=== PATIENT | male | born 1990 | race African-American/Black ===

== ENCOUNTER 2018-07-06 08:24 | Day surgery (SDC) | payer SELFPAY ==
--- NOTE | 2018-07-05 20:02 | Pre-op HX & Phy Repo 2 SIG ---
DATE OF SURGERY: 07/06/2018. PREOPERATIVE DIAGNOSIS: Retinal detachment, left eye. 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 He was seen by his audio visual secretary who suspected a retinal detachment. Diagnosis was confirmed at her office today and he is admitted for repair. 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 He also had refractive laser surgery in both eyes in 2008. PAST MEDICAL HISTORY: Benign according to the patient. He does not smoke or drink. ALLERGIES: He has allergies to milk products and mustard. No medication allergies are known. SURGICAL HISTORY: He also gives a history of shoulder surgery done on the left side in 2012. PHYSICAL EXAMINATION: Best vision at the time of the visit was 20/20 in the right eye and 20/15- in the left eye without correction. There was inferotemporal field loss on the left. The pressures were 12 and 11. Pupillary and anterior segment exams are otherwise normal. Fundus examination of the right eye showed extensive peripheral laser to lattice degeneration and holes. There was no retinal detachment and no holes that appeared to be untreated. Left fundus showed a localized retinal detachment from the 8:30 position to the 12 o'clock position with an open break at 11:30. Previously applied laser was seen in the periphery, but no other areas of open break were apparent. General physical examination will be done by Dr. Bowman. ASSESSMENT: Retinal detachment, left eye. PLAN: The plan is to perform a scleral buckle procedure with possible drainage, cryopexy and a gas injection. The risks and benefits of surgery gone over the patient with potential for infection, the need for additional operations, cataract formation, hemorrhage, a very remote possibility of loss of the eye. The risk of anesthesia was discussed. The patient understands and consents to surgery, which will be performed on tomorrow morning. Hai Rahman M.D. DR: ANA JOB#: [id number] CC:
[~2018-07-06] VITALS: Ht 190.5 cm; Wt 104.3 kg
[2018-07-06] VITALS (11 sets, daily range): BP systolic 103–128; BP diastolic 54–76
[~2018-07-06 08:24] MED LIST: Pred Forte 1% Opth Susp 1ml LEFT EYE ONE
[2018-07-06] MEDS ORDERED: Cyclopentolate 1% Opth Sol 2ml ONE (08:40)
[2018-07-06] MEDS ORDERED: Flurbiprofen 0.03% Opth Sol 2.5ml ONE (08:40)
[2018-07-06] MEDS ORDERED: Phenylephrine 2.5% Op 2ml Soln ONE (08:40)
[2018-07-06] MEDS ORDERED: Vigamox Opth Soln 3ml ONE (08:40)
[2018-07-06] MEDS: Phenylephrine 2.5% Op 2ml Soln LEFT EYE SCH ×3 (08:45→09:02)
[2018-07-06] MEDS: Cyclopentolate 1% Opth Sol 2ml LEFT EYE SCH ×3 (08:46→09:01)
[2018-07-06] MEDS: Flurbiprofen 0.03% Opth Sol 2.5ml LEFT EYE SCH ×3 (08:46→09:01)
[2018-07-06] MEDS: Vigamox Opth Soln 3ml LEFT EYE SCH ×3 (08:46→09:02)
[2018-07-06 09:00] LABS: EOSINOPHILS % (AUTO) 4.1 % (0.0-3.0); HEMOGLOBIN 13.9 G/DL (14.2-18.0); LYMPHOCYTES % (AUTO) 43.7 % (20.0-45.0); MEAN CORPUSCULAR VOLUME 87 FL (80-99); MONOCYTES % (AUTO) 10.5 % (1.0-10.0); NEUTROPHILS % (AUTO) 39.6 % (45.0-75.0); PLATELET COUNT 161 K/UL (150-450); RED BLOOD COUNT 4.92 M/UL (4.70-6.10); RED CELL DISTRIBUTION WIDTH 12.3 % (11.6-14.8)
[2018-07-06] MEDS ORDERED: NKM (09:06)
[2018-07-06 09:34] LABS: ANION GAP 2 mmol/L (5-15); BLOOD UREA NITROGEN 19 mg/dL (7-18); CALCIUM 8.8 MG/DL (8.5-10.1); CARBON DIOXIDE 31 MMOL/L (21-32); CHLORIDE 106 MMOL/L (98-107); POTASSIUM 4.2 MMOL/L (3.5-5.1); SODIUM 139 MMOL/L (136-145)
[2018-07-06] MEDS ORDERED: Lidocaine 2% MPF 5ml Vial INJ ONE (09:49)
[2018-07-06] MEDS ORDERED: EPINEPHrine 1mg/1ml Amp ONE (09:49)
[2018-07-06] MEDS ORDERED: Kenalog-10 5ml Inj ONE (09:50)
[2018-07-06] MEDS ORDERED: Maxitrol Opth Oint 3.5gm ONE (09:50)
[2018-07-06] MEDS ORDERED: Kenalog-40 1ml Vial ONE (09:50)
[2018-07-06] MEDS ORDERED: Dexamethasone 4mg/ml vial ONE (09:50)
[2018-07-06] MEDS ORDERED: Pred Forte 1% Opth Susp 1ml ONE (09:50)
[2018-07-06] MEDS ORDERED: Triamcinolone 40mg/ml PF Vial ONE (09:51)
[2018-07-06] MEDS ORDERED: BSS 500ml btl ONE (09:51)
[2018-07-06] MEDS ORDERED: Bupivacaine 0.75% 30ml vial INJ ONE (09:51)
[2018-07-06] MEDS ORDERED: BSS 15ml BTL ONE (09:51)
[2018-07-06] MEDS ORDERED: Sodium Hyaluronate 10 mg/ml 0.85ml ONE (09:52)
[2018-07-06] MEDS ORDERED: Povidone-Iodine 5% opth solution ONE (09:52)
[2018-07-06] MEDS ORDERED: Lidocaine 1% MPF 10mg/ml 5ml ONE (10:25)
[2018-07-06] MEDS ORDERED: Propofol 200mg/20ml IV ONE (10:25)
[2018-07-06] MEDS ORDERED: fentaNYL 100 mcg/2 mL IV ONE (10:25)
[2018-07-06] MEDS ORDERED: Midazolam 2mg/2ml Inj ONE (10:25)
[2018-07-06] MEDS ORDERED: Succinylcholine 20mg/ml 10ml vial ONE (10:30)
[2018-07-06] MEDS ORDERED: NS Irrig 1000ml ONE (10:30)
[2018-07-06] MEDS ORDERED: Sterile Water Irrig 1000ml IRRIG ONE (10:30)
[2018-07-06] MEDS ORDERED: LR 1000ml ONE (10:30)
[2018-07-06] MEDS ORDERED: Neosporin Oph Soln 5ml Btl ONE (10:31)
--- NOTE | 2018-07-06 10:38 | Pre-Procedure Note/Attestation ---
Pre-Procedure Note/Attestation Complete Prior to Procedure Planned Procedure: left Procedure Narrative: Scleral buckle, peripheral cryopexy, gas injection Left eye Indications for Procedure Pre-Operative Diagnosis: Loss of peripheral field Left eye Attestation I attest that I discussed the nature of the procedure; its benefits; risks and complications; and alternatives (and the risks and benefits of such alternatives ), prior to the procedure, with the patient (or the patient's legal school admissions representative). I attest that, if there was a reasonable possibility of needing a blood transfusion, the patient (or the patient's legal school admissions representative) was given the [facility] standardized written summary, pursuant to the Daniel Fely Blood Safety Act ([place] Health and Safety Code # 1645, as amended). I attest that I re-evaluated the patient just prior to the surgery and that there has been no change in the patient's H&P, except as documented below: IVY CHANG Jul 06, 2018 10:38
--- NOTE | 2018-07-06 11:06 | Anethesia Preoperative Eval ---
Anesthesia Pre-op PMH/ROS General Date of Evaluation: Jul 06, 2018 Time of Evaluation: 10:30 Anesthesiologist: Marina Pruitt CRNA ASA Score: ASA 1 Mallampati Score Class I : Soft palate, uvula, fauces, pillars visible Class II: Soft palate, uvula, fauces visible Class III: Soft palate, base of uvula visible Class IV: Only hard plate visible Mallampati Classification: Class I Surgeon: Josiah Diagnosis: LEFT eye retinal detachment Surgical Procedure: LEFT eye sclerl buckling Anesthesia History: none Family History: no anesthesia problems Allergies: Coded Allergies: EGG (Verified Allergy, Severe, 07/06/18) UPSET STOMACH MILK (Verified Allergy, Severe, 07/06/18) UPSET STOMACH Barley (Verified Allergy, Intermediate, 07/06/18) UPSET STOMACH MUSTARD (Verified Allergy, Intermediate, 07/06/18) UPSET STOMACH PEANUT (Verified Allergy, Intermediate, 07/06/18) UPSET STOMACH, RASHES Wheat (Verified Allergy, Intermediate, 07/06/18) UPSET STOMACH,, RASHES Past Medical History Cardiovascular: Denies: HTN, CAD, NH, valve dz, arrhythmia, other Pulmonary: Denies: asthma, COPD, JOSE, other Gastrointestinal/Genitourinary: Denies: GERD, CRI, ESRD, other Endocrine: Denies: DM, hypothyroidism, steroids, other HEENT: Denies: cataract (L), cataract (R), glaucoma, [place] (L), [place] (R), other Hematology/Immune: Denies: anemia, DVT, bleeding disorder, other Musculoskeletal/Integumentary: Denies: OA, RA, DJD, DDD, edema, other PMH Narrative: Healhty 28yo s/p LEFT eye retinal detachment from boxing injury Anesthesia Pre-op Phys. Exam Physician Exam Last Vital Signs Date Time Temp Pulse Resp B/P (MAP) Pulse Ox O2 Delivery O2 Flow Rate FiO2 07/06/18 08:59 Room Air 07/06/18 08:52 97.9 56 18 128/69 (88) 97 97.9 Constitutional: NAD Neurologic: CN 2-12 intact Cardiovascular: RRR Respiratory: CTA Gastrointestinal: S/NT/ND Airway Exam Mallampati Score: Class I MO: full TMD: > 3 FB ROM: full Teeth: intact Anesthesia Pre-op A/P Labs Hematology Test 07/06/18 08:45 White Blood Count 5.0 K/UL (4.8-10.8) Red Blood Count 4.92 M/UL (4.70-6.10) Hemoglobin 13.9 G/DL (14.2-18.0) L Hematocrit 43.0 % (42.0-52.0) Mean Corpuscular Volume 87 FL (80-99) Mean Corpuscular Hemoglobin 28.3 PG (27.0-31.0) Mean Corpuscular Hemoglobin Concent 32.4 G/DL (32.0-36.0) Red Cell Distribution Width 12.3 % (11.6-14.8) Platelet Count 161 K/UL (150-450) Mean Platelet Volume 10.3 FL (6.5-10.1) H Neutrophils (%) (Auto) 39.6 % (45.0-75.0) L Lymphocytes (%) (Auto) 43.7 % (20.0-45.0) Monocytes (%) (Auto) 10.5 % (1.0-10.0) H Eosinophils (%) (Auto) 4.1 % (0.0-3.0) H Basophils (%) (Auto) 2.0 % (0.0-2.0) Chemistry Test 07/06/18 09:15 Sodium Level 139 MMOL/L (136-145) Potassium Level 4.2 MMOL/L (3.5-5.1) Chloride Level 106 MMOL/L (98-107) Carbon Dioxide Level 31 MMOL/L (21-32) Anion Gap 2 mmol/L (5-15) L Blood Urea Nitrogen 19 mg/dL (7-18) H Creatinine 1.0 MG/DL (0.55-1.30) Estimat Glomerular Filtration Rate > 60 mL/min (>60) Glucose Level 88 MG/DL (74-106) Calcium Level 8.8 MG/DL (8.5-10.1) Risk Assessment & Plan Status Change Before Surgery: No Pre-Antibiotics Given Within 1 Hr of Incision: Marina Lopez CRNA Jul 06, 2018 11:06
[2018-07-06] MEDS ORDERED: acetaZOLAMIDE 500mg Inj ONE (12:12)
--- NOTE | 2018-07-06 12:44 | Immediate Post-Op Evaluation ---
Immediate Post-Op Evalulation Immediate Post-Op Evalulation Procedure: LEFT eye scleral buckling Date of Evaluation: Jul 06, 2018 Time of Evaluation: 12:37 IV Fluids: LR 900 ml Blood Products: 0 Estimated Blood Loss: 0 Urinary Output: n/a Blood Pressure Systolic: 111 Blood Pressure Diastolic: 61 Pulse Rate: 49 Respiratory Rate: 16 O2 Sat by Pulse Oximetry: 100 Temperature (Fahrenheit): 97.4 Nausea: No Vomiting: No Complications none Patient Status: no response, patent, extubated Hydration Status: adequate Given Within 1 Hr of Incision: Marina Lopez CRNA Jul 06, 2018 12:44
--- NOTE | 2018-07-06 13:30 | 48 Hour Post Anesthesia Eval ---
Post Anesthesia Evaluation Procedure: LEFT eye scleral buckling Date of Evaluation: Jul 06, 2018 Time of Evaluation: 13:27 Blood Pressure Systolic: 118 0: 65 Pulse Rate: 54 Respiratory Rate: 20 Temperature (Fahrenheit): 97.4 O2 Sat by Pulse Oximetry: 100 Airway: patent Nausea: No Vomiting: No Pain Intensity: 0 Hydration Status: adequate Mental Status/LOC: patient returned to baseline Follow-up Care/Observations: Pt awake, oriented, VSS on RA, no distress or discomfort. Post-Anesthesia Complications: none Follow-up care needed: ready to discharge Marina Pruitt CRNA Jul 06, 2018 13:30
[2018-07-06] MEDS ORDERED: acetaZOLAMIDE 500mg Sequel ORAL SCH (14:07)
[2018-07-06] MEDS ORDERED: acetaZOLAMIDE 500mg Sequel ORAL ONE (14:08)
[2018-07-06] MEDS ORDERED: Norco 5mg/325mg tab ORAL PRN (15:00)
--- NOTE | 2018-07-06 16:30 | Pre-op HX & Phy Repo 2 SIG ---
DATE OF ADMISSION: 07/06/2018 PRESURGICAL INTERNAL MEDICINE HISTORY AND PHYSICAL DATE OF EVALUATION: 07/06/2018. REASON FOR EVALUATION: I was asked by Dr. Hai Rahman to see this 28-year-old male, who is going for emergency surgery on the left eye. The patient has retinal detachment of the left eye. Please see History and Physical by Dr. Hai Rahman. The patient was evaluated. Chart was reviewed. PAST MEDICAL HISTORY/REVIEW OF SYSTEMS: Remarkable for childhood asthma, nonsymptomatic now. Denies history of hypertension. No history of chest pain, palpitation, or heart attack. No history of diabetes mellitus. No GI bleeding or heartburn. Denies history of hepatitis. No history of renal failure. No anemia. Denies history of arthritis, seizures, or stroke. PAST SURGICAL HISTORY: Left shoulder surgery surgery in the past. FAMILY HISTORY: Mother had diabetes. Father unknown. ALLERGIES: To , milk, peanuts, barley, and wheat. PRESENT MEDICATIONS: None. HABITS: Denies tobacco, alcohol, or street drug use. PHYSICAL EXAMINATION: GENERAL: Alert, well-developed, well-nourished, 28-year-old male, who is going for surgery. VITAL SIGNS: Blood pressure 128/69, temperature 97.9 degrees, pulse 56, respirations 18, and O2 saturation 97% on room air. The patient is 6 feet 3 inches tall. Weight 130 pounds. SKIN: Clear and dry. No rashes. Having tattoo on the chest and arm. HEENT: Head, normocephalic. Ears, clear. Eyes, full description per Dr. Hai Rahman. Mouth, clear and moist. No discharge. No ulcer or dentures. NECK: Supple. No jugular venous distention. Carotids artery +2. Trachea midline. CHEST: No deformity or asymmetry. HEART: No murmur. No S3 or S4. LUNGS: Clear. No rales or rhonchi. No wheezing. ABDOMEN: Soft. No rebound. No palpable mass. Liver and spleen not enlarged. EXTREMITIES: No deformity. No edema. No varicose vein. No calf tenderness. GENITOURINARY TRACT: Denies dysuria. No CVA tenderness. NERVOUS SYSTEM: No tremor. No nystagmus. No asymmetry. DIAGNOSTIC DATA: The patient's last p.o. intake 7 p.m. yesterday. EKG waiver, age and symptoms. LABORATORY WORK: White blood cells 5.0, hemoglobin was 13.9, hematocrit 43.0, neutrophils 39.6, and eosinophils 4.4. Sodium 139, potassium 4.2, BUN 19, creatinine 1.0, GFR more than 60, blood sugar 88, and calcium 8.8. IMPRESSION: 1. Retinal detachment, left eye. 2. Childhood asthma, presently asymptomatic. 3. Elevated BUN with dehydration. PLAN: Scleral buckle gas-fluid exchange, left eye per Dr. Hai Rahman. CONCLUSION: The patient's vital signs stable today. The patient is not on any medication. Blood work shows borderline increased BUN, normal potassium 4.9, and slightly decreased hemoglobin 13.9. The patient is NPO. The patient's condition optimized for surgery. Thank you very much, Dr. Rahman, for privilege to participate in presurgical care of this interesting patient. Neetu Bowman M.D. DR: ANGELICA JOB#: [id number] CC:
--- NOTE | 2018-07-07 19:30 | Operative Note - Dictated ---
DATE OF OPERATION: 07/06/2018 PREOPERATIVE DIAGNOSIS: Retinal detachment, left eye. POSTOPERATIVE DIAGNOSIS: Retinal detachment, left eye. PROCEDURES: 1. Scleral buckle. 2. Peripheral cryopexy. 3. A gas injection, left eye. SURGEON: Hai Rahman M.D. RECEIVER STOCKER: None. ANESTHESIA: LMA .general. JUSTIFICATION FOR SURGERY: This 28-year-old gentleman noted loss of temporal vision in the left eye and was found to have a detachment. BRIEF NOTE: The patient brought to the operative room, placed on OR room table in supine position. After time-out was performed and agreed upon by the staff, general LMA anesthesia was induced by the anesthesiologist. The patient was then subjected to a retrobulbar and small Van Lint block to limit intraoperative medications and postoperative pain. He was then prepped and draped in normal manner. The lid speculum inserted into the right eye. Examination with indirect ophthalmoscope prior to the surgery revealed a localized detachment from the 8 o'clock to the 11 o'clock positions with an open break and at the 10 o'clock position. There was extensive laser to lattice degeneration holes going almost 360 degrees. The fluid extended into the posterior to the equator of the nasal side. The macula was flat. A 360-degree peritomy was then cut with relaxation incisions at the 3 and 9 o'clock positions. The quadrants were explored and found to be without scleral thinning. The muscles were isolated and turned on white and black ties. The eye was reexamined and the area of the retinal tear was marked. It was felt that there was not sufficient fluid to warn an attempted drainage. Gentle cryopexy was used to treat the area of the retinal tear and put a slight increased barricade between elevated retina and posteriorly. A careful scleral depression revealed other areas of detachment tears. Once the cryopexy was done, the preparation was made for scleral buckle. Sutures were placed in the suprarenal nasal quadrant at 6 mm apart in compensating the area of the tear so that this would be on the crest of the buckle. Additional mattress sutures of 5-0 nylon were put and the remaining 3 quadrants centered 15 mm from the limbus. The sutures were 3 mm apart. At this juncture, a 240 band was placed about the eye, beneath the muscles and the sutures and secured with a 70 sleeve superotemporally at about the 1 o'clock position. A segment of 287 tire was then cut and placed in the superonasal quadrant beneath the suture and the 240 band to give an extra buckling affect at the area of the retinal detachment. The eye was examined with the indirect ophthalmoscope and there was some degree of corneal clouding had been noted possibly related to the patient's prior refractive surgery. Things appear to be in place. At this juncture, a paracentesis was done at the 12 o'clock position with a 30-gauge needle to soften the eye and after this maneuver, pure C3F8, 0.4 mL was injected 4 mm from the limbus superonasally. The pressure remained soft after an additional small paracentesis. Diamox 500 mg was given during the surgery intravenously. The ends of the buckle were then trimmed after all sutures had been tied and rotated posteriorly. The tightening of the band was only sufficient to provide a mild buckling effect. The bridle sutures were removed and conjunctiva and tenons capsule were pulled up and secured with 2 interrupted sutures of 6-0 plain catgut with the knots buried at 3 and 9. Subconjunctival Decadron and gentamicin were then injected inferiorly and Maxitrol and atropine ointments were instilled. The eye was patched and shielded. The patient was taken to recovery in excellent condition, to be placed in a face-down position for 45 minutes and then just sleep with the left side down the remainder of the evening. Hai Rahman M.D. DR: ANA JOB#: [id number] CC:
--- NOTE | 2018-07-08 14:20 | Brief Operative Note ---
Immediate Post Operative Note Operative Note Chief Complaint: Loss of peripheral field Left eye Pre-op Diagnosis: Retinal detachment Left eye Procedure: Scleral buckle (240, 287, 70 sleeve), peripherad cryopexy, gas injection (0.4 cc of C3F8) OS Post-op Diagnosis: same as pre-op Surgeon: Josiah Anesthesiologist: Edmond CORDOVA Anesthesia: general Specimen: none Complications: none Condition: stable Fluids: Per anesthesia Estimated Blood Loss: none Drains: none Implant(s) used?: Yes - 240 band, 287 tire, 70 sleeve IVY CHANG Jul 08, 2018 14:20
== END 2018-07-06 14:25 | disposition home or self-care (01) ==
LOC: SUR 08:24
DX: H33.22 Serous retinal detachment, left eye (principal); Z91.012 Allergy to eggs; Z91.011 Allergy to milk products; Z91.010 Allergy to peanuts; Z91.018 Allergy to other foods
CPT/HCPCS: 36415; 67101; 80048; 85025; J0330; J1100; J1120; J2250; J2405; J2704; J3010; J3470; J3490; J7120; 94003; 94150; J3300